=== PATIENT | male | born 1945 | race Caucasian/White ===

== ENCOUNTER 2021-04-01 13:50 | Emergency (ER) | payer MEDICARE ==
[~2021-04-01] VITALS: Ht 157.5 cm; Wt 61.2 kg
[2021-04-01 16:07] LABS: BASOPHILS ABSOLUTE AUTO 0.05 K/mm3 (0.00-0.23); BASOPHILS PERCENT AUTO 1 % (0-2); EOSINOPHILS ABSOLUTE AUTO 0.16 K/mm3 (0.00-0.68); EOSINOPHILS PERCENT AUTO 2 % (0-6); Hematocrit 37.5 % (37.0-53.0); Hemoglobin 12.5 g/dL (13.5-17.5); IMMATURE GRAN ABSOLUTE AUTO 0.04 K/mm3 (0.00-0.10); IMMATURE GRAN PERCENT AUTO 0 % (0-1); LYMPHOCYTES ABSOLUTE AUTO 1.81 K/mm3 (0.84-5.20); LYMPHOCYTES PERCENT AUTO 18 % (21-46); MONOCYTES ABSOLUTE AUTO 0.86 K/mm3 (0.16-1.47); MONOCYTES PERCENT AUTO 9 % (4-13); Mean Corpuscular HGB 31.1 pg (26.0-34.0); Mean Corpuscular HGB Conc 33.3 g/dL (31.5-36.5); Mean Corpuscular Volume 93 fL (80-100); Mean Platelet Volume 12.6 fL (9.1-12.4); NEUTROPHILS ABSOLUTE AUTO 6.91 K/mm3 (1.96-9.15); NEUTROPHILS PERCENT AUTO 70 % (41-73); Platelet Count 190 K/mm3 (150-400); RDW Coefficient Variation 14.1 % (11.7-14.2); RDW Standard Deviation 47.8 fL (35.1-46.3); Red Blood Cell Count 4.02 M/mm3 (4.30-5.90); White Blood Cell Count 9.83 K/mm3 (4.00-11.30)
[2021-04-01 16:26] LABS: Albumin, Blood 3.3 g/dL (3.4-5.0); Albumin/Globulin Ratio 0.9 (0.8-1.8); Bilirubin, Total 0.3 mg/dL (0.1-1.0); Bun/Creatinine Ratio 14.3 (12.0-20.0); Calcium, Blood 8.5 mg/dL (8.5-10.1); Creatinine, Blood 1.33 mg/dL (0.60-1.20); Globulin, Blood 3.8 g/dL (2.2-4.0); Potassium, Blood 3.6 mmol/L (3.5-5.5); Total Protein, Blood 7.1 g/dL (6.4-8.2)
[2021-04-02] MEDS ORDERED: Prinivil10 MG PO (13:34)
[2021-04-02] MEDS ORDERED: METOPROLOL SUCC25 MG PO (13:34)
[2021-04-02] MEDS ORDERED: PANTOPRAZOLE SO40 M2 PO (13:35)
[2021-04-02] MEDS ORDERED: PLAVIX75 MG PO (13:35)
[2021-04-02] MEDS ORDERED: ISOSORBIDE MONO30 MG PO (13:35)
[2021-04-02] MEDS ORDERED: METFORMIN HCL500 M2 PO (13:35)
[2021-04-02] MEDS ORDERED: ATOR40TA PO (13:35)
[2021-04-02] MEDS ORDERED: Aspir 8181 MG PO (13:36)
[2021-04-02] MEDS ORDERED: ATEN50 PO (18:18)
[2021-04-02] MEDS ORDERED: METO25ER PO (20:00)
== END 2021-04-01 19:15 | disposition left against medical advice (07) ==
LOC: ER 13:50
PROVIDERS: Physician Assistant
DX: Z53.21 Procedure and treatment not carried out due to patient leaving prior to being seen by health care provider (principal)
CPT/HCPCS: 80053; 84484; 85025; 93005; 93010; 99283-25

== ENCOUNTER 2021-04-02 09:16 | Observation (INO) | payer MEDICARE ==
[~2021-04-02] VITALS: Ht 157.5 cm; Wt 60.9 kg
[2021-04-02 10:36] LABS: BASOPHILS ABSOLUTE AUTO 0.05 K/mm3 (0.00-0.23); BASOPHILS PERCENT AUTO 0 % (0-2); EOSINOPHILS ABSOLUTE AUTO 0.13 K/mm3 (0.00-0.68); EOSINOPHILS PERCENT AUTO 1 % (0-6); Hematocrit 42.7 % (37.0-53.0); IMMATURE GRAN ABSOLUTE AUTO 0.03 K/mm3 (0.00-0.10); IMMATURE GRAN PERCENT AUTO 0 % (0-1); LYMPHOCYTES ABSOLUTE AUTO 2.29 K/mm3 (0.84-5.20); LYMPHOCYTES PERCENT AUTO 21 % (21-46); MONOCYTES ABSOLUTE AUTO 0.82 K/mm3 (0.16-1.47); MONOCYTES PERCENT AUTO 7 % (4-13); Mean Corpuscular HGB 30.8 pg (26.0-34.0); Mean Corpuscular HGB Conc 32.8 g/dL (31.5-36.5); Mean Corpuscular Volume 94 fL (80-100); Mean Platelet Volume 12.6 fL (9.1-12.4); NEUTROPHILS ABSOLUTE AUTO 7.81 K/mm3 (1.96-9.15); NEUTROPHILS PERCENT AUTO 70 % (41-73); Platelet Count 211 K/mm3 (150-400); RDW Standard Deviation 48.4 fL (35.1-46.3); Red Blood Cell Count 4.54 M/mm3 (4.30-5.90); White Blood Cell Count 11.13 K/mm3 (4.00-11.30)
[2021-04-02 10:47] LABS: Albumin, Blood 3.4 g/dL (3.4-5.0); Albumin/Globulin Ratio 0.8 (0.8-1.8); Bilirubin, Total 0.3 mg/dL (0.1-1.0); Bun/Creatinine Ratio 13.4 (12.0-20.0); Calcium, Blood 8.7 mg/dL (8.5-10.1); Creatinine, Blood 1.19 mg/dL (0.60-1.20); Globulin, Blood 4.1 g/dL (2.2-4.0); Potassium, Blood 3.8 mmol/L (3.5-5.5); Total Protein, Blood 7.5 g/dL (6.4-8.2); Troponin I 0.032 ng/mL (0.000-0.040)
[2021-04-02] MEDS ORDERED: METOPROLOL SUCC25 MG PO (13:34)
[2021-04-02] MEDS ORDERED: Prinivil10 MG PO (13:34)
[2021-04-02] MEDS ORDERED: METFORMIN HCL500 M2 PO (13:35)
[2021-04-02] MEDS ORDERED: PLAVIX75 MG PO (13:35)
[2021-04-02] MEDS ORDERED: ATOR40TA PO (13:35)
[2021-04-02] MEDS ORDERED: PANTOPRAZOLE SO40 M2 PO (13:35)
[2021-04-02] MEDS ORDERED: ISOSORBIDE MONO30 MG PO (13:35)
[2021-04-02] MEDS ORDERED: Aspir 8181 MG PO (13:36)
[2021-04-02] MEDS ORDERED: ATEN50 PO (18:18)
[2021-04-02 19:43] LABS: CPK Creatine Kinase 27 U/L (39-308)
[2021-04-02] MEDS ORDERED: METO25ER PO (20:00)
[2021-04-03 03:42] LABS: BASOPHILS ABSOLUTE AUTO 0.04 K/mm3 (0.00-0.23); BASOPHILS PERCENT AUTO 0 % (0-2); EOSINOPHILS ABSOLUTE AUTO 0.13 K/mm3 (0.00-0.68); EOSINOPHILS PERCENT AUTO 1 % (0-6); Hematocrit 37.9 % (37.0-53.0); Hemoglobin 12.6 g/dL (13.5-17.5); IMMATURE GRAN ABSOLUTE AUTO 0.03 K/mm3 (0.00-0.10); IMMATURE GRAN PERCENT AUTO 0 % (0-1); LYMPHOCYTES ABSOLUTE AUTO 1.37 K/mm3 (0.84-5.20); LYMPHOCYTES PERCENT AUTO 15 % (21-46); MONOCYTES ABSOLUTE AUTO 0.69 K/mm3 (0.16-1.47); MONOCYTES PERCENT AUTO 8 % (4-13); Mean Corpuscular HGB 31.2 pg (26.0-34.0); Mean Corpuscular HGB Conc 33.2 g/dL (31.5-36.5); Mean Corpuscular Volume 94 fL (80-100); Mean Platelet Volume 12.6 fL (9.1-12.4); NEUTROPHILS ABSOLUTE AUTO 6.83 K/mm3 (1.96-9.15); NEUTROPHILS PERCENT AUTO 75 % (41-73); Platelet Count 190 K/mm3 (150-400); RDW Coefficient Variation 14.2 % (11.7-14.2); RDW Standard Deviation 48.3 fL (35.1-46.3); Red Blood Cell Count 4.04 M/mm3 (4.30-5.90); White Blood Cell Count 9.09 K/mm3 (4.00-11.30)
[2021-04-03 03:53] LABS: Albumin, Blood 3.3 g/dL (3.4-5.0); Albumin/Globulin Ratio 0.9 (0.8-1.8); Bilirubin, Total 0.4 mg/dL (0.1-1.0); Bun/Creatinine Ratio 13.5 (12.0-20.0); Calcium, Blood 8.4 mg/dL (8.5-10.1); Creatinine, Blood 1.55 mg/dL (0.60-1.20); Globulin, Blood 3.6 g/dL (2.2-4.0); Potassium, Blood 3.1 mmol/L (3.5-5.5); Total Protein, Blood 6.9 g/dL (6.4-8.2)
[2021-04-03 03:57] LABS: Troponin I 0.064 ng/mL (0.000-0.040)
--- NOTE | 2021-04-03 04:31 | NUR ---
LIFESTYLE DIRECTOR SUMMARY NEW ADMIT FROM THE ED AT START OF SHIFT. PT AAOX4 AND PLEASANT. INDEPENDENT IN ROOM. SBP 170'S AT START OF SHIFT, GIVEN SCHEDULED BEDTIME METOPROLOL AND SBP 150'S WITH MORNING VITALS. TROPONINS SLOWLY TRENDING UP FROM 0.041 TO 0.064. PT DENIES CP. NSR IN THE 60'S ON TELEMETRY. OTHER VSS, WILL CONTINUE TO MONITOR.
[2021-04-03 06:43] LABS: Source, Urine Clean Catch
[2021-04-03 06:48] LABS: Appearance, Urine Clear (Clear); Bilirubin, Urine Neg (Neg); Blood, Urine Neg (Neg); Color, Urine Yellow (P-Yellow); Glucose Qualitative, Urine Neg (Neg); Ketones, Urine Neg (Neg); Leukocyte Esterase, Urine Neg (Neg); Nitrite, Urine Neg (Neg); Protein, Urine 2+ (Neg); Specific Gravity, Urine 1.015 (1.003-1.022); Urobilinogen, Urine NORM (Normal)
--- NOTE | 2021-04-03 16:54 | NUR ---
SHIFT SUMMARY PATIENT ALERT AND ORIENTED THIS SHIFT. PATIENT IS INDEPENDENT IN THE ROOM. PATIENT DENIES CP OR DISCOMFORT. PATIENT'S SYSTOLIC BP 202 DURING AM VITALS. RECHECK JUST BEFORE NOON SYSTOLIC REMAINED ABOVE 180. DR NOTIFIED AND PRN HYDRALAZINE ADMINISTERED. BP MEDICATIONS ADJUSTED BY DR AND ADMINISTERED PER ORDERS. BP 145/57 DURING AFTERNOON VITALS. PATIENT ALTERNATING BETWEEN BED AND CHAIR THROUGHOUT THIS SHIFT. PATIENT CURRENTLY LYING IN BED WATCHING TELEVISION.
--- NOTE | 2021-04-03 20:49 | NUR ---
AWAKE. CHEERFUL AFFECT. BP ELEVATED. ROUTINE METAPROLOL GIVEN - SEE OCT. MED EFFECTIVE, BP LOWER. NOW 167/76. HR SINUS. PT DENIES CHEST PAIN. SEEN BY A WHILE AGO, WILL CONTINUE TO MONITOR FOR CHEST PAIN. CALL LIGHT IN REACH
--- NOTE | 2021-04-04 06:18 | NUR ---
DIRECTOR PUBLIC SUMMARY AWAKE AT INTERVALS, DENIED CHEST PAIN ALL SHIFT. BP ELEVATED, RECEIVED ANTIHYPERTENSIVES. JOKING WITH NURSE THIS AM. CALL LIGHT IN REACH. MONITORING BP
[2021-04-04 08:04] LABS: Bun/Creatinine Ratio 16.1 (12.0-20.0); Calcium, Blood 8.6 mg/dL (8.5-10.1); Creatinine, Blood 1.37 mg/dL (0.60-1.20); Potassium, Blood 3.6 mmol/L (3.5-5.5)
[2021-04-04] MEDS ORDERED: AMLO5 PO (12:58)
[2021-04-04] MEDS ORDERED: METO25 PO (13:00)
--- NOTE | 2021-04-04 15:01 | NUR ---
DISCHARGE SUMMARY PATIENT DISCHARGED TO HOME. PATIENT ALERT, ORIENTED, AND INDEPENDENT IN THE ROOM THROUGHOUT THIS SHIFT. PATIENT DENIES CHEST PAIN THROUGHOUT THIS ADMISSION. PATIENT'S SYSTOLIC BP > 200 DURING MANAGER INVENTORY CONTROL VITALS. DR CHANGED BP MEDICATIONS. BP RECHECKED THROUGHOUT THE MORNING, SYSTOLIC BP 120 AT APPROXIATELY 1200. PATIENT AND DAUGHER IN THE ROOM FOR DISCHARGE AND MEDICATION INSTRUCTIONS. QUESTIONS ANSWERED TO PATIENT AND DAUGHTER'S SATISFACTION. IV REMOVED PRIOR TO DISCHARGE. PATIENT BELONGINGS WITH PATIENT UPON DISCHARGE. PATIENT REFUSED WHEELCHAIR, STATING HE WOULD PREFER TO WALK. PATIENT ESCORTED TO VEHICLE BY NURSE.
== END 2021-04-04 14:52 | disposition home or self-care (01) ==
LOC: ER 09:16 → MEDS 09:17 → ER 17:15 → MEDS 17:15
PROVIDERS: Family Medicine; Physician Assistant; Student in an Organized Health Care Education/Training Program; ADMIT Internal Medicine
DX: I16.0 Hypertensive urgency (principal); I21.A1 Myocardial infarction type 2; N17.9 Acute kidney failure, unspecified; I10 Essential (primary) hypertension; E87.6 Hypokalemia; F17.210 Nicotine dependence, cigarettes, uncomplicated; E78.5 Hyperlipidemia, unspecified; E11.9 Type 2 diabetes mellitus without complications; K21.9 Gastro-esophageal reflux disease without esophagitis; Z79.84 Long term (current) use of oral hypoglycemic drugs; Z79.02 Long term (current) use of antithrombotics/antiplatelets; Z79.82 Long term (current) use of aspirin
CPT/HCPCS: 36415; 71045; 80048; 80053; 82550; 82947; 83690; 84484; 85025; 93005; 93010; 93306; 96372; 96374; 96376; 99285-25; A9270; G0378; J0360; J1650

== ENCOUNTER 2021-04-11 15:20 | Inpatient (IN) | payer MEDICARE ==
[~2021-04-11] VITALS: Ht 152.4 cm; Wt 60.9 kg
[~2021-04-11 15:20] MED LIST: AMLO5 PO; ATEN50 PO; ATOR40TA PO; Aspir 8181 MG PO; ISOSORBIDE MONO30 MG PO; METFORMIN HCL500 M2 PO; METO25 PO; METO25ER PO; METOPROLOL SUCC25 MG PO; PANTOPRAZOLE SO40 M2 PO; PLAVIX75 MG PO; Prinivil10 MG PO
[2021-04-11 16:14] LABS: BASOPHILS ABSOLUTE AUTO 0.06 K/mm3 (0.00-0.23); BASOPHILS PERCENT AUTO 1 % (0-2); EOSINOPHILS ABSOLUTE AUTO 0.17 K/mm3 (0.00-0.68); EOSINOPHILS PERCENT AUTO 2 % (0-6); Hematocrit 37.2 % (37.0-53.0); Hemoglobin 12.3 g/dL (13.5-17.5); IMMATURE GRAN ABSOLUTE AUTO 0.03 K/mm3 (0.00-0.10); IMMATURE GRAN PERCENT AUTO 0 % (0-1); LYMPHOCYTES ABSOLUTE AUTO 2.54 K/mm3 (0.84-5.20); LYMPHOCYTES PERCENT AUTO 24 % (21-46); MONOCYTES ABSOLUTE AUTO 0.86 K/mm3 (0.16-1.47); MONOCYTES PERCENT AUTO 8 % (4-13); Mean Corpuscular HGB Conc 33.1 g/dL (31.5-36.5); Mean Corpuscular Volume 94 fL (80-100); Mean Platelet Volume 12.1 fL (9.1-12.4); NEUTROPHILS ABSOLUTE AUTO 6.84 K/mm3 (1.96-9.15); NEUTROPHILS PERCENT AUTO 65 % (41-73); Platelet Count 240 K/mm3 (150-400); RDW Coefficient Variation 14.5 % (11.7-14.2); RDW Standard Deviation 49.5 fL (35.1-46.3); Red Blood Cell Count 3.97 M/mm3 (4.30-5.90)
[2021-04-11 16:31] LABS: Alanine Aminotransfer (ALT/SGP 15 U/L (12-78); Albumin, Blood 3.4 g/dL (3.4-5.0); Albumin/Globulin Ratio 0.9 (0.8-1.8); Alk Phos 105 U/L (50-136); Anion Gap 6 mmol/L (6-16); Aspartate Aminotrans (AST/SGOT 12 U/L (12-37); Bilirubin, Total 0.3 mg/dL (0.1-1.0); Blood Urea Nitrogen 17 mg/dL (8-24); CO2, Blood 24 mmol/L (21-32); Calcium, Blood 8.4 mg/dL (8.5-10.1); Chloride, Blood 113 mmol/L (98-108); Creatinine, Blood 1.13 mg/dL (0.60-1.20); Globulin, Blood 3.7 g/dL (2.2-4.0); Glomerular Filtration Rate >60 (60-); Glucose, Blood 125 mg/dL (70-99); Potassium, Blood 3.4 mmol/L (3.5-5.5); Sodium, Blood 143 mmol/L (136-145); Total Protein, Blood 7.1 g/dL (6.4-8.2)
[2021-04-11 17:04] LABS: International Normalized Ratio 1.04; Prothrombin Time Results 11.2 Sec (9.7-11.5)
[2021-04-12 05:36] LABS: Anion Gap 9 mmol/L (6-16); Blood Urea Nitrogen 13 mg/dL (8-24); Bun/Creatinine Ratio 11.4 (12.0-20.0); CO2, Blood 23 mmol/L (21-32); Calcium, Blood 8.4 mg/dL (8.5-10.1); Chloride, Blood 111 mmol/L (98-108); Creatinine, Blood 1.14 mg/dL (0.60-1.20); Glomerular Filtration Rate >60 (60-); Glucose, Blood 116 mg/dL (70-99); Potassium, Blood 3.4 mmol/L (3.5-5.5); Sodium, Blood 143 mmol/L (136-145)
--- NOTE | 2021-04-12 07:31 | NUR ---
SHIFT SUMMARY PT IS A 76 Y/O MALE, ADMITTED DURING THE NIGHT. HE WAS ADMITTED FOR CVA WITH L-SIDE WEAKNESS. HE IS A&O X 4, WITH SOME DEPRESSION NOTED R/T HIS CURRENT CONDITION. PT HAS HAD INCREASING WEAKNESS AND NUMBNESS IN LUE AND LLE SINCE ADMIT, AND HAS TROUBLE SITTING UP BY HIMSELF WITHOUT LEANING TO THE LEFT. NO FACIAL DROOP OR SWALLING ISSUES NOTED. VITAL SIGNS STABLE. TELE SHOWED NSR IN THE 70S. NO OTHER ACUTE CHANGES IN PT CONDITION NOTED SINCE ADMISSION TO THE FLOOR. WILL CONTINUE TO MONITOR AND TREAT PER EMAR UNTIL HAND OFF TO DAY SHIFT RN.
--- NOTE | 2021-04-12 15:40 | NUR ---
DR. CAPELLAN NOTIFIED OF BP OF 172/86 AT THIS TIME. NO NEW ORDERS AT THIS TIME.
--- NOTE | 2021-04-12 17:20 | NUR ---
SHIFT SUMMARY PT AXO, PLEASANT AND COOPERATIVE WITH CARE. L SIDED DEFICIT FROM CVA, GROSS MOVEMENT OF LUE AND LLE. UP WITH 2 ASSIST FWW AND GB. MRI THIS SHIFT, SEE IMAGING. THIS NURSE ASKED BOTH DR CORTEZ AND DR SNELL TO DISCUSS THE FINDING OF THE MASS ON THE LUNG SO THAT PATIENT IS NOT CAUGHT OFF GUARD IF IT GETS BROUGHT UP IF HE ALREADY KNOWS. VSS THOUGH HTN NOTED AND DR CAPELLAN AWARE. BED IN LOW POSITION, CALL LIGHT WITHIN REACH.
--- NOTE | 2021-04-13 04:58 | NUR ---
SHIFT SUMMARY AOX4. HS BP ELEVATED @190/85, RECHECKED & DECREASED TO 171/85. REST OF VITALS STABLE. TELE NSR c PAC @87. HAS L FACIAL DROOP. L SIDE WEAKNESS, STILL ABLE TO MOVE & WIGGLE TOES/FINGER ON L EXTREMITIES. REPORTS 6/10 PAIN c L EXTREMITY SPASMS, INFORMED DR PHOENIX & HE CHANGED FLEXERIL ORDER, MEDICATED. 2 ASSIST TO BSC c GB. CALL LIGHT IN REACH, PT ABLE TO MAKE NEEDS KNOWN. WCTM.
[2021-04-13] MEDS ORDERED: CYCL10 PO (16:58)
--- NOTE | 2021-04-13 17:18 | NUR ---
DISCHARGE SUMMARY PT DISCHARGED @ APPROX 1720 VIA WHEELCHAIR BY JUAN. DISCHARGE INSTRUCTIONS REVIEWED c PT WELL NEW MEDICATIONS. DAUGHTER (CAREGIVER) PRESENT AT THIS TIME. IV'S REMOVED AND SITES APPEARED WNL. PT STATES HE HAS ALL OF HIS BELONGINGS @ THIS TIME. NEEDED RX FAXED TO PHARMACY.
== END 2021-04-13 17:20 | disposition home health service (06) | DRG 65 ==
LOC: ER 15:20 → MEDS 15:21
PROVIDERS: Physician Assistant; ADMIT Internal Medicine
DX: I63.81 Other cerebral infarction due to occlusion or stenosis of small artery (principal); G81.94 Hemiplegia, unspecified affecting left nondominant side; E87.6 Hypokalemia; I16.0 Hypertensive urgency; I10 Essential (primary) hypertension; E78.5 Hyperlipidemia, unspecified; E11.51 Type 2 diabetes mellitus with diabetic peripheral angiopathy without gangrene; K21.9 Gastro-esophageal reflux disease without esophagitis; Z79.899 Other long term (current) drug therapy; R59.1 Generalized enlarged lymph nodes; I65.23 Occlusion and stenosis of bilateral carotid arteries; Z86.73 Personal history of transient ischemic attack (TIA), and cerebral infarction without residual deficits; Z79.82 Long term (current) use of aspirin; Z79.02 Long term (current) use of antithrombotics/antiplatelets
CPT/HCPCS: 36415; 70450; 70496; 70498; 70551; 80048; 80053; 85025; 85610; 93005; 93010; 93308; 93321; 97110; 97112; 97161; 97162; 97530; 99285-25; A9270; G0378; Q9967

== ENCOUNTER → 2021-09-16 | Outpatient (CLI) | payer MEDICARE ==
[~2021-09-16] MED LIST changes: +CYCL10 PO
[2021-09-16 20:20] LABS: Creatinine, Urine Random 82.5 mg/dL (27.00-270.00)
[2021-09-16 20:23] LABS: Microalb/Creat Ratio UR, Rand 120.727 mg/g (0.000-30.000); Microalbumin, Random Urine 99.6 mg/L (0.000-20.000)
== END | disposition home or self-care (01) ==
LOC: LAB SHORT 14:28
PROVIDERS: Family Medicine
DX: E11.9 Type 2 diabetes mellitus without complications (principal)
CPT/HCPCS: 82043; 82570

== ENCOUNTER → 2023-07-08 | Outpatient (CLI) | payer MEDICARE ==
[2023-07-08 13:02] LABS: BASOPHILS ABSOLUTE AUTO 0.06 K/mm3 (0.00-0.23); BASOPHILS PERCENT AUTO 1 % (0-2); EOSINOPHILS ABSOLUTE AUTO 0.26 K/mm3 (0.00-0.68); EOSINOPHILS PERCENT AUTO 3 % (0-6); Hemoglobin 10.1 g/dL (13.5-17.5); IMMATURE GRAN ABSOLUTE AUTO 0.02 K/mm3 (0.00-0.10); IMMATURE GRAN PERCENT AUTO 0 % (0-1); LYMPHOCYTES ABSOLUTE AUTO 1.67 K/mm3 (0.84-5.20); LYMPHOCYTES PERCENT AUTO 16 % (21-46); MONOCYTES ABSOLUTE AUTO 0.91 K/mm3 (0.16-1.47); MONOCYTES PERCENT AUTO 9 % (4-13); Mean Corpuscular HGB 31.8 pg (26.0-34.0); Mean Corpuscular HGB Conc 31.6 g/dL (31.5-36.5); Mean Corpuscular Volume 101 fL (80-100); Mean Platelet Volume 12.3 fL (9.1-12.4); NEUTROPHILS ABSOLUTE AUTO 7.64 K/mm3 (1.96-9.15); NEUTROPHILS PERCENT AUTO 72 % (41-73); Platelet Count 294 K/mm3 (150-400); RDW Coefficient Variation 14.2 % (11.7-14.2); RDW Standard Deviation 51.7 fL (35.1-46.3); Red Blood Cell Count 3.18 M/mm3 (4.30-5.90); White Blood Cell Count 10.56 K/mm3 (4.00-11.30)
[2023-07-08 13:11] LABS: Bun/Creatinine Ratio 19.1 (12.0-20.0); Calcium, Blood 9.2 mg/dL (8.5-10.1); Creatinine, Blood 2.46 mg/dL (0.60-1.20); Potassium, Blood 5.5 mmol/L (3.5-5.5)
== END ==
LOC: LAB SHORT 09:50 → LAB 09:50
PROVIDERS: Family Medicine
DX: E11.9 Type 2 diabetes mellitus without complications (principal); Z79.899 Other long term (current) drug therapy
CPT/HCPCS: 80048; 83036; 85025

== ENCOUNTER 2023-09-08 01:57 | Observation (INO) | payer MEDICARE ==
[~2023-09-08] VITALS: Ht 157.5 cm; Wt 57.8 kg
[2023-09-08 02:54] LABS: BASOPHILS ABSOLUTE AUTO 0.05 K/mm3 (0.00-0.23); BASOPHILS PERCENT AUTO 1 % (0-2); EOSINOPHILS ABSOLUTE AUTO 0.33 K/mm3 (0.00-0.68); EOSINOPHILS PERCENT AUTO 4 % (0-6); Hemoglobin 6.8 g/dL (13.5-17.5); IMMATURE GRAN ABSOLUTE AUTO 0.03 K/mm3 (0.00-0.10); IMMATURE GRAN PERCENT AUTO 0 % (0-1); LYMPHOCYTES ABSOLUTE AUTO 1.31 K/mm3 (0.84-5.20); LYMPHOCYTES PERCENT AUTO 15 % (21-46); MONOCYTES PERCENT AUTO 8 % (4-13); Mean Corpuscular HGB 32.5 pg (26.0-34.0); Mean Corpuscular HGB Conc 30.9 g/dL (31.5-36.5); Mean Corpuscular Volume 105 fL (80-100); NEUTROPHILS ABSOLUTE AUTO 6.43 K/mm3 (1.96-9.15); NEUTROPHILS PERCENT AUTO 73 % (41-73); Platelet Count 258 K/mm3 (150-400); RDW Coefficient Variation 15.1 % (11.7-14.2); RDW Standard Deviation 57.1 fL (35.1-46.3); Red Blood Cell Count 2.09 M/mm3 (4.30-5.90); White Blood Cell Count 8.85 K/mm3 (4.00-11.30)
[2023-09-08] MEDS ORDERED: FERSU300 PO (03:18)
[2023-09-08] MEDS ORDERED: GLIP5ER PO (03:19)
[2023-09-08] MEDS ORDERED: CENTRUM SILVER1 EAC2 PO (03:20)
[2023-09-08] MEDS ORDERED: HYDCHL25 PO (03:20)
[2023-09-08 04:00] LABS: International Normalized Ratio 0.95
[2023-09-08 04:05] LABS: Source, Urine Clean Catch
[2023-09-08 04:08] LABS: Magnesium, Blood 2.6 mg/dL (1.6-2.4)
[2023-09-08 04:27] LABS: Albumin, Blood 3.6 g/dL (3.4-5.0); Albumin/Globulin Ratio 1.1 (0.8-1.8); Bilirubin, Total 0.2 mg/dL (0.1-1.0); Bun/Creatinine Ratio 24.6 (12.0-20.0); Calcium, Blood 8.3 mg/dL (8.5-10.1); Creatinine, Blood 2.6 mg/dL (0.60-1.20); Globulin, Blood 3.2 g/dL (2.2-4.0); Phosphorus, Blood 4.7 mg/dL (2.5-4.9); Potassium, Blood 6.3 mmol/L (3.5-5.5); Total Protein, Blood 6.8 g/dL (6.4-8.2)
[2023-09-08 04:45] LABS: Bilirubin, Urine Neg (Neg); Blood, Urine Neg (Neg); Glucose Qualitative, Urine Neg (Neg); Ketones, Urine Neg (Neg); Leukocyte Esterase, Urine Neg (Neg); Nitrite, Urine Neg (Neg); Protein, Urine Neg (Neg); Specific Gravity, Urine 1.015 (1.003-1.022); Urobilinogen, Urine NORM (Normal)
[2023-09-08 05:19] LABS: Appearance, Urine Clear (Clear); Color, Urine Pale Yellow (P-Yellow)
[2023-09-08 08:24] VITALS: BP 167/69
[2023-09-08 09:27] LABS: Hematocrit 27.4 % (37.0-53.0); Hemoglobin 8.7 g/dL (13.5-17.5)
[2023-09-08 09:52] LABS: Percent Saturation 6.1 % (20.0-50.0)
--- NOTE | 2023-09-08 11:30 | NUR ---
0815-TRANSFER PT TO MEDICAL FLOOR IN STABLE CONDITION.
[2023-09-08 12:26] LABS: Hematocrit 26.5 % (37.0-53.0); Hemoglobin 8.3 g/dL (13.5-17.5)
[2023-09-08 12:56] LABS: Bun/Creatinine Ratio 21.1 (12.0-20.0); Creatinine, Blood 2.42 mg/dL (0.60-1.20); Potassium, Blood 6.5 mmol/L (3.5-5.5)
[2023-09-08] MEDS ORDERED: LOKELMA10 GM PO (14:11)
--- NOTE | 2023-09-08 16:21 | NUR ---
DC-1510 PT BROUGHT DOWN IN WC WITH DAUGHTER FOR DC IN STABLE CONDITION. PT LEFT WITH ALL BELONGINGS. RN DISCUSSED IN DETAIL PT'S NEW PRESCRIPTIONS AND FOLLOW-LABS/MD APPTS. PT AND DAUGHTER VERBALLY AGREED/UNDERSTOOD. PT SIGNED ALL DC INSTRUCTIONS.
== END 2023-09-08 15:00 | disposition home or self-care (01) ==
LOC: ER 01:57 → ERHOLD 01:58 → MEDS 01:58
PROVIDERS: Emergency Medicine; ADMIT Internal Medicine
DX: I12.9 Hypertensive chronic kidney disease with stage 1 through stage 4 chronic kidney disease, or unspecified chronic kidney disease (principal); D63.1 Anemia in chronic kidney disease; E78.5 Hyperlipidemia, unspecified; K21.9 Gastro-esophageal reflux disease without esophagitis; Z86.73 Personal history of transient ischemic attack (TIA), and cerebral infarction without residual deficits; F17.210 Nicotine dependence, cigarettes, uncomplicated; E87.5 Hyperkalemia; N18.4 Chronic kidney disease, stage 4 (severe); J44.1 Chronic obstructive pulmonary disease with (acute) exacerbation; E11.22 Type 2 diabetes mellitus with diabetic chronic kidney disease
CPT/HCPCS: 36415; 36430; 71260; 80048; 80053; 81003; 82728; 83540; 83550; 83735; 84100; 84484; 85014; 85018; 85025; 85379; 85610; 85730; 86850; 86900; 86901; 86923; 93005; 93010; 96374; 99285-25; A9270; C9113; G0378; J7030; P9016; Q9967

== ENCOUNTER → 2023-10-21 | Outpatient (CLI) | payer MEDICARE ==
[~2023-10-21] MED LIST changes: +CENTRUM SILVER1 EAC2 PO; +FERSU300 PO; +GLIP5ER PO; +HYDCHL25 PO; +LOKELMA10 GM PO
[2023-10-21 13:04] LABS: BASOPHILS ABSOLUTE AUTO 0.04 K/mm3 (0.00-0.23); BASOPHILS PERCENT AUTO 0 % (0-2); EOSINOPHILS ABSOLUTE AUTO 0.17 K/mm3 (0.00-0.68); EOSINOPHILS PERCENT AUTO 2 % (0-6); Hematocrit 38.9 % (37.0-53.0); Hemoglobin 12.5 g/dL (13.5-17.5); IMMATURE GRAN ABSOLUTE AUTO 0.03 K/mm3 (0.00-0.10); IMMATURE GRAN PERCENT AUTO 0 % (0-1); LYMPHOCYTES ABSOLUTE AUTO 1.55 K/mm3 (0.84-5.20); LYMPHOCYTES PERCENT AUTO 15 % (21-46); MONOCYTES ABSOLUTE AUTO 0.87 K/mm3 (0.16-1.47); MONOCYTES PERCENT AUTO 8 % (4-13); Mean Corpuscular HGB 30.4 pg (26.0-34.0); Mean Corpuscular HGB Conc 32.1 g/dL (31.5-36.5); Mean Corpuscular Volume 95 fL (80-100); Mean Platelet Volume 12.5 fL (9.1-12.4); NEUTROPHILS ABSOLUTE AUTO 7.85 K/mm3 (1.96-9.15); NEUTROPHILS PERCENT AUTO 75 % (41-73); Platelet Count 233 K/mm3 (150-400); RDW Coefficient Variation 12.9 % (11.7-14.2); RDW Standard Deviation 44.9 fL (35.1-46.3); Red Blood Cell Count 4.11 M/mm3 (4.30-5.90); White Blood Cell Count 10.51 K/mm3 (4.00-11.30)
[2023-10-21 13:10] LABS: Anion Gap 6 mmol/L (6-16); Blood Urea Nitrogen 43 mg/dL (8-24); Bun/Creatinine Ratio 18.8 (12.0-20.0); CHOL/HDL RATIO 4.6; CO2, Blood 23 mmol/L (21-32); Calcium, Blood 9.2 mg/dL (8.5-10.1); Chloride, Blood 110 mmol/L (98-108); Cholesterol 179 mg/dL (50-200); Creatinine, Blood 2.29 mg/dL (0.60-1.20); Glomerular Filtration Rate 29 (60-); Glucose, Blood 92 mg/dL (70-99); HDL Cholesterol 39 mg/dL (>39); Iron Serum 167 ug/dL (65-175); LDL/HDL RATIO 2.7; Low Density Lipoprotein Chol 106 mg/dL (0-110); Potassium, Blood 4.5 mmol/L (3.5-5.5); Sodium, Blood 139 mmol/L (136-145); Triglycerides 172 mg/dL (30-160); Very Low Density Lipoprot Chol 34 mg/dL (6-32)
[2023-10-21 13:18] LABS: Ferritin, Serum 30 ng/mL (26-388); Percent Saturation 42.1 % (20.0-50.0); Total Iron Binding Capacity 397 ug/dL (250-450)
[2023-10-21 13:28] LABS: Creatinine, Urine Random 80.5 mg/dL (27.00-270.00)
[2023-10-21 13:31] LABS: Microalb/Creat Ratio UR, Rand 65.342 mg/g (0.000-30.000); Microalbumin, Random Urine 52.6 mg/L (0.000-20.000)
== END ==
LOC: LAB 11:42 → LAB SHORT 11:42
PROVIDERS: Family Medicine
DX: E11.9 Type 2 diabetes mellitus without complications (principal); D50.9 Iron deficiency anemia, unspecified; E87.5 Hyperkalemia; Z79.899 Other long term (current) drug therapy
CPT/HCPCS: 36415; 80048; 80061; 82043; 82306; 82570; 82728; 83036; 83540; 83550; 84443; 85025

== ENCOUNTER 2025-03-10 07:49 | Emergency (ER) | payer MEDICARE ==
[~2025-03-10] VITALS: Ht 157.5 cm; Wt 59.0 kg
[2025-03-10] MEDS ORDERED: Loradamed10 MG PO (08:20)
[2025-03-10] MEDS ORDERED: ASCO500 PO (08:20)
[2025-03-10] MEDS ORDERED: VITAMIN D325 MC3 PO (08:21)
[2025-03-10] MEDS ORDERED: Ipratropium/Albuterol SulF 2.5-0.5MG/3 ML Amp INH ONE (09:35)
[2025-03-10 09:41] LABS: BASOPHILS ABSOLUTE AUTO 0.08 K/mm3 (0.00-0.23); BASOPHILS PERCENT AUTO 1 % (0-2); EOSINOPHILS ABSOLUTE AUTO 0.59 K/mm3 (0.00-0.68); EOSINOPHILS PERCENT AUTO 6 % (0-6); Hematocrit 30.1 % (37.0-53.0); Hemoglobin 9.9 g/dL (13.5-17.5); IMMATURE GRAN ABSOLUTE AUTO 0.02 K/mm3 (0.00-0.10); IMMATURE GRAN PERCENT AUTO 0 % (0-1); LYMPHOCYTES ABSOLUTE AUTO 1.23 K/mm3 (0.84-5.20); LYMPHOCYTES PERCENT AUTO 13 % (21-46); MONOCYTES ABSOLUTE AUTO 1.08 K/mm3 (0.16-1.47); MONOCYTES PERCENT AUTO 12 % (4-13); Mean Corpuscular HGB Conc 32.9 g/dL (31.5-36.5); Mean Corpuscular Volume 96 fL (80-100); NEUTROPHILS ABSOLUTE AUTO 6.39 K/mm3 (1.96-9.15); NEUTROPHILS PERCENT AUTO 68 % (41-73); NRBC ABSOLUTE 0.00 K/mm3 (0.00-0.02); NRBC Auto 0.0 /100 WBC (0.0-0.2); Platelet Count 178 K/mm3 (150-400); RDW Coefficient Variation 14.4 % (11.7-14.2); RDW Standard Deviation 50.2 fL (35.1-46.3)
[2025-03-10 10:14] LABS: Influenza A, PCR NEGATIVE (NEGATIVE); Influenza B, PCR NEGATIVE (NEGATIVE); Resp Syncytial Virus, PCR NEGATIVE (NEGATIVE); SARS-Cov-2 (COVID-19) PCR, MMC NEGATIVE (NEGATIVE)
[2025-03-10 10:20] LABS: Alanine Aminotransfer (ALT/SGP 18.0 U/L (12-78); Albumin, Blood 3.6 g/dL (3.4-5.0); Albumin/Globulin Ratio 1.0 (0.8-1.8); Anion Gap 9.0 mmol/L (3-11); Aspartate Aminotrans (AST/SGOT 11.0 U/L (12-37); Bilirubin, Total 0.2 mg/dL (0.1-1.0); Blood Urea Nitrogen 45.0 mg/dL (8-24); CO2, Blood 20.0 mmol/L (21-32); Calcium, Blood 7.7 mg/dL (8.5-10.1); Chloride, Blood 116.0 mmol/L (98-108); Creatinine, Blood 2.36 mg/dL (0.60-1.20); Globulin, Blood 3.7 g/dL (2.2-4.0); Glucose, Blood 99.0 mg/dL (70-99); Potassium, Blood 3.8 mmol/L (3.5-5.5); Sodium, Blood 141.0 mmol/L (136-145); Total Protein, Blood 7.3 g/dL (6.4-8.2)
[2025-03-10] MEDS ORDERED: RX Prepack Albuterol 1 PREPACK/6.7 GM INH UD ONE (10:35)
[2025-03-10 10:50] VITALS: BP 154/68
[2025-03-10] MEDS ORDERED: HYDROmorphone HCl/Pf 1MG SYR IV ONE (10:55)
== END 2025-03-10 10:50 | disposition home or self-care (01) ==
LOC: ER 07:49
PROVIDERS: Student in an Organized Health Care Education/Training Program
DX: J44.9 Chronic obstructive pulmonary disease, unspecified (principal); J06.9 Acute upper respiratory infection, unspecified; Z79.899 Other long term (current) drug therapy; I10 Essential (primary) hypertension; E78.5 Hyperlipidemia, unspecified; E11.9 Type 2 diabetes mellitus without complications; K21.9 Gastro-esophageal reflux disease without esophagitis; F17.210 Nicotine dependence, cigarettes, uncomplicated
CPT/HCPCS: 71046; 80053; 85025; 87637; 99284-25; A9270

== ENCOUNTER → 2025-04-05 | Outpatient (CLI) | payer MEDICARE ==
[~2025-04-05] MED LIST changes: +ASCO500 PO; +Loradamed10 MG PO; +VITAMIN D325 MC3 PO
[2025-04-05 19:52] LABS: Campylobacter Sp Not Detected (NOT DETECT); E. Coli O157 Not Detected (NOT DETECT); Enteroaggregative E. coli-EAEC Not Detected (NOT DETECT); Enteropathogenic E. coli-EPEC Not Detected (NOT DETECT); Enterotoxigenic E. coli-ETEC Not Detected (NOT DETECT); Salmonella Sp Not Detected (NOT DETECT); Shiga Toxin-prod E. coli-STEC Not Detected (NOT DETECT); Shigella/Enteroin E. coli-EIEC Not Detected (NOT DETECT); Vibrio Sp Not Detected (NOT DETECT)
[2025-04-06 14:55] LABS: Stool Occult Blood Guaiac 1 Neg (Neg)
== END ==
LOC: LAB SHORT 15:00 → LAB 15:00
PROVIDERS: Family Medicine
DX: K52.9 Noninfective gastroenteritis and colitis, unspecified (principal); D64.9 Anemia, unspecified; K92.1 Melena
CPT/HCPCS: 82272; 87338; 87507

== ENCOUNTER 2025-04-30 19:03 | Emergency (ER) | payer MEDICARE ==
[~2025-04-30] VITALS: Ht 157.5 cm; Wt 59.0 kg
[~2025-04-30 19:03] MED LIST changes: +ATOR20 PO; +ISOSORBIDE MONO60 MG PO; +LISI20 PO; -Prinivil10 MG PO
[2025-04-30 19:15] VITALS: BP 152/100
[2025-04-30] MEDS ORDERED: Ketorolac Tromethamine 15mg Vial IM ONE (21:40)
[2025-04-30] MEDS ORDERED: RX Prepack 6 Tabs Oxycodone 5mg UD ONE (21:40)
== END 2025-04-30 21:41 | disposition home or self-care (01) ==
LOC: ER 19:03
DX: M25.562 Pain in left knee (principal); I10 Essential (primary) hypertension; E78.5 Hyperlipidemia, unspecified; K21.9 Gastro-esophageal reflux disease without esophagitis; E11.9 Type 2 diabetes mellitus without complications; F17.210 Nicotine dependence, cigarettes, uncomplicated
CPT/HCPCS: 73562-LT; 96372; 99283-25; A9270; J1885

== ENCOUNTER 2025-06-20 07:48 | Day surgery (SDC) | payer MEDICARE ==
[~2025-06-20] VITALS: Ht 157.5 cm; Wt 56.0 kg
[~2025-06-20 07:48] MED LIST changes: +PANT40 PO
[2025-06-20 08:16] VITALS: BP 142/69
--- NOTE | 2025-06-20 08:30 | NUR ---
History, Chart, Medications and Allergies reviewed before start of procedure. Pre-Op teaching done. Pt verbalizes understanding. Patient confirms NPO status and agrees with scheduled surgery. Patient states colon prep results LIGHT YELLOW.
--- NOTE | 2025-06-20 08:37 | NUR ---
06/20/25 0836 Corine Singletary MONITOR INTACT WITH CONTINUOUS PULSE OXIMETRY, CONTINUOUS END TITAL CO2, 3-LEAD EKG AND INTERMITTENT BLOOD PRESSURE. Bite Block Placed, O2 VIA POM INTACT THROUGHOUT SEDATION/PROCEDURE. See Anesthesia record FROM DR. MORALES
[2025-06-20 09:27] VITALS: BP 137/71
--- NOTE | 2025-06-20 10:16 | NUR ---
TO STEP POST PROCDURE. SLIGHT NPC NOTED, NO SOB, PAIN, NAUSEA. BART PO WELL. DC'D IV INTACT. CHANGED AT BEDSIDE, STEADY GAIT. VERBALIZED UNDERSTANDING OF DC INSTRUCTIONS. DC'D VIA WC TO PRIVATE CAR WITH DENSITOMETRIST.
== END 2025-06-20 10:00 | disposition home or self-care (01) ==
LOC: ORSCMMR 07:48 → ORD 08:45 → ORSCMMR 08:45
PROVIDERS: Internal Medicine Gastroenterology
PROC: 0DBL8ZX Excision of Transverse Colon, Via Natural or Artificial Opening Endoscopic, Diagnostic (ICD-10-PCS; principal; 2025-06-20 08:45)
PROC: 0DB78ZX Excision of Stomach, Pylorus, Via Natural or Artificial Opening Endoscopic, Diagnostic (ICD-10-PCS; principal; 2025-06-20 08:45)
PROC: 0DB48ZX Excision of Esophagogastric Junction, Via Natural or Artificial Opening Endoscopic, Diagnostic (ICD-10-PCS; principal; 2025-06-20 08:45)
PROC: 0DB98ZX Excision of Duodenum, Via Natural or Artificial Opening Endoscopic, Diagnostic (ICD-10-PCS; principal; 2025-06-20 08:45)
PROC: 0DBE8ZX Excision of Large Intestine, Via Natural or Artificial Opening Endoscopic, Diagnostic (ICD-10-PCS; principal; 2025-06-20 08:45)
PROC: 0DBK8ZX Excision of Ascending Colon, Via Natural or Artificial Opening Endoscopic, Diagnostic (ICD-10-PCS; principal; 2025-06-20 08:45)
PROC: 0DBN8ZX Excision of Sigmoid Colon, Via Natural or Artificial Opening Endoscopic, Diagnostic (ICD-10-PCS; principal; 2025-06-20 08:45)
DX: D46.4 Refractory anemia, unspecified (principal); R19.7 Diarrhea, unspecified; R10.9 Unspecified abdominal pain; K21.9 Gastro-esophageal reflux disease without esophagitis; K57.30 Diverticulosis of large intestine without perforation or abscess without bleeding; K44.9 Diaphragmatic hernia without obstruction or gangrene; Z86.73 Personal history of transient ischemic attack (TIA), and cerebral infarction without residual deficits; I12.9 Hypertensive chronic kidney disease with stage 1 through stage 4 chronic kidney disease, or unspecified chronic kidney disease; N18.9 Chronic kidney disease, unspecified; F17.210 Nicotine dependence, cigarettes, uncomplicated; Z80.0 Family history of malignant neoplasm of digestive organs; J44.9 Chronic obstructive pulmonary disease, unspecified; I25.10 Atherosclerotic heart disease of native coronary artery without angina pectoris; I50.9 Heart failure, unspecified; Z79.899 Other long term (current) drug therapy
CPT/HCPCS: 88305; 88342; J7120

== ENCOUNTER → 2025-08-29 | Outpatient (CLI) | payer MEDICARE ==
[2025-08-29 13:33] LABS: BASOPHILS ABSOLUTE AUTO 0.05 K/mm3 (0.00-0.23); BASOPHILS PERCENT AUTO 1 % (0-2); EOSINOPHILS ABSOLUTE AUTO 0.23 K/mm3 (0.00-0.68); EOSINOPHILS PERCENT AUTO 3 % (0-6); Hematocrit 31.6 % (37.0-53.0); Hemoglobin 10.7 g/dL (13.5-17.5); IMMATURE GRAN ABSOLUTE AUTO 0.03 K/mm3 (0.00-0.10); IMMATURE GRAN PERCENT AUTO 0 % (0-1); LYMPHOCYTES ABSOLUTE AUTO 0.86 K/mm3 (0.84-5.20); LYMPHOCYTES PERCENT AUTO 10 % (21-46); MONOCYTES ABSOLUTE AUTO 0.78 K/mm3 (0.16-1.47); MONOCYTES PERCENT AUTO 9 % (4-13); Mean Corpuscular HGB Conc 33.9 g/dL (31.5-36.5); Mean Corpuscular Volume 92 fL (80-100); NEUTROPHILS ABSOLUTE AUTO 6.77 K/mm3 (1.96-9.15); NEUTROPHILS PERCENT AUTO 78 % (41-73); NRBC ABSOLUTE 0.00 K/mm3 (0.00-0.02); NRBC Auto 0.0 /100 WBC (0.0-0.2); Platelet Count 192 K/mm3 (150-400); RDW Coefficient Variation 14.1 % (11.7-14.2); RDW Standard Deviation 47.6 fL (35.1-46.3)
[2025-08-29 15:53] LABS: Alanine Aminotransfer (ALT/SGP 18.0 U/L (12-78); Albumin, Blood 3.9 g/dL (3.4-5.0); Albumin/Globulin Ratio 1.1 (0.8-1.8); Anion Gap 11.0 mmol/L (3-11); Aspartate Aminotrans (AST/SGOT 9.0 U/L (12-37); Bilirubin, Total 0.4 mg/dL (0.1-1.0); Blood Urea Nitrogen 42.0 mg/dL (8-24); CO2, Blood 22.0 mmol/L (21-32); Calcium, Blood 7.7 mg/dL (8.5-10.1); Chloride, Blood 111.0 mmol/L (98-108); Creatinine, Blood 2.26 mg/dL (0.60-1.20); Globulin, Blood 3.6 g/dL (2.2-4.0); Glucose, Blood 113.0 mg/dL (70-99); Potassium, Blood 3.5 mmol/L (3.5-5.5); Sodium, Blood 140.0 mmol/L (136-145); Total Protein, Blood 7.5 g/dL (6.4-8.2)
== END | disposition home or self-care (01) ==
LOC: LAB SHORT 08:50 → LAB 08:50
PROVIDERS: Family Medicine
DX: Z51.81 Encounter for therapeutic drug level monitoring (principal); Z79.899 Other long term (current) drug therapy
CPT/HCPCS: 80053; 83036; 85025